=== PATIENT | male | born 1985 | race Caucasian/White ===

== ENCOUNTER 2018-04-17 13:13 | Emergency (ER) | payer SELFPAY ==
--- NOTE | 2018-04-17 13:31 | ER Document Report ---
ED Medical Screen (RME) - General Chief Complaint: Weakness Stated Complaint: ARM TINGLING/ SWEATING Time Seen by Provider: 04/17/18 13:18 Mode of Arrival: Ambulatory Information source: Patient TRAVEL OUTSIDE OF THE [place] IN LAST 30 DAYS: No - HPI Patient complains to provider of: Chills, tingling in left arm, nausea, generalized weakness Onset: Yesterday Onset/Duration: Gradual, Persistent Notes: 04/17/18 13:30 Patient is a 32-year-old otherwise healthy male presenting to the emergency room complaining of symptoms that started yesterday which include nausea with no appetite today, tingling sensation down the left arm, generalized weakness with a period of approximately 20 minutes yesterday evening where he felt as though his legs were stiff and he was shuffling on his feet, he also reports chills today, feeling flushed with generalized weakness - Related Data Allergies/Adverse Reactions: No Known Allergies Allergy (Verified 04/17/18 13:14) Past Medical History - Social History Chew tobacco use (# tins/day): No Frequency of alcohol use: None Drug Abuse: None Renal/ Medical History: Denies: Hx Peritoneal Dialysis - Immunizations Hx Diphtheria, Pertussis, Tetanus Vaccination: Yes Physical Exam - Vital signs Vitals: Temp Pulse Resp BP Pulse Ox 98.4 F 99 14 151/79 H 99 04/17/18 13:20 04/17/18 13:20 04/17/18 13:20 04/17/18 13:20 04/17/18 13:20 Course - Vital Signs Vital signs: Temp Pulse Resp BP Pulse Ox 98.4 F 99 14 151/79 H 99 04/17/18 13:20 04/17/18 13:20 04/17/18 13:20 04/17/18 13:20 04/17/18 13:20
[2018-04-17 14:00] LABS: APPEARANCE,URINE CLEAR; BILIRUBIN,URINE NEGATIVE (NEGATIVE); COLOR,URINE STRAW; GLUCOSE, URINE NEGATIVE (NEGATIVE); KETONES,URINE NEGATIVE (NEGATIVE); LEUKOCYTE ESTERASE,URINE NEGATIVE (NEGATIVE); NITRITE,URINE NEGATIVE (NEGATIVE); PROTEIN,URINE NEGATIVE (NEGATIVE); URINE SPECIFIC GRAVITY 1.009; UROBILINOGEN,URINE NEGATIVE mg/dL (<2.0)
[2018-04-17 14:05] LABS: ABSOLUTE BASOPHILS # (AUTO) 0.1 10^3/uL (0.0-0.2); ABSOLUTE EOSINOPHILS # (AUTO) 0.1 10^3/uL (0.0-0.6); ABSOLUTE LYMPHOCYTES (AUTO) 1.4 10^3/uL (0.5-4.7); ABSOLUTE MONOCYTES (AUTO) 0.6 10^3/uL (0.1-1.4); ABSOLUTE NEUT (AUTO) 13.1 10^3/uL (1.7-8.2); BASOPHILS % (AUTO) 0.6 % (0-2); EOSINOPHILS % (AUTO) 0.5 % (0-6); HEMATOCRIT 46.7 % (37.9-51.0); HEMOGLOBIN 15.5 g/dL (13.5-17.0); LYMPHOCYTES % (AUTO) 9.3 % (13-45); MEAN CORPUSCULAR HEMOGLOBIN 29.5 pg (27.0-33.4); MEAN CORPUSCULAR HGB CONC 33.1 g/dL (32.0-36.0); MEAN CORPUSCULAR VOLUME 89 fl (80-97); PLATELET COUNT 301 10^3/uL (150-450); RED BLOOD COUNT 5.23 10^6/uL (4.35-5.55); RED CELL DISTRIBUTION WIDTH 13.8 % (11.5-14.0); SEGMENTED NEUTROPHILS % (AUTO) 85.6 % (42-78); TOTAL CELLS COUNTED % (AUTO) 100 %; WHITE BLOOD COUNT 15.2 10^3/uL (4.0-10.5)
[2018-04-17 14:17] LABS: ALANINE AMINOTRANSFERASE 33 U/L (21-72); ALBUMIN 5.1 g/dL (3.5-5.0); ALKALINE PHOSPHATASE 56 U/L (38-126); ANION GAP 16 (5-19); ASPARTATE AMINO TRANSFERASE 23 U/L (17-59); BILIRUBIN,DIRECT 0.3 mg/dL (0.0-0.4); BILIRUBIN,TOTAL 0.5 mg/dL (0.2-1.3); BLOOD UREA NITROGEN 12 mg/dL (7-20); CALCIUM 10.2 mg/dL (8.4-10.2); CARBON DIOXIDE 26 mmol/L (22-30); CHLORIDE 104 mmol/L (98-107); CREATINE KINASE 125 U/L (55-170); GLUCOSE 124 mg/dL (75-110); LIPASE 71.3 U/L (23-300); POTASSIUM 4.8 mmol/L (3.6-5.0); SODIUM 146.4 mmol/L (137-145); TOTAL PROTEIN 7.8 g/dL (6.3-8.2)
[2018-04-17] MEDS ORDERED: ASPIRIN 81 MG TABLET, CHEWABLE PO ONE (15:36)
[2018-04-17] MEDS ORDERED: NORMAL SALINE 1000 ML 1,000 ML IV ONE (15:36)
[2018-04-17 16:01] LABS: URINE AMPHETAMINES SCREEN NEGATIVE; URINE BARBITURATES SCREEN NEGATIVE; URINE BENZODIAZEPINES SCREEN NEGATIVE; URINE COCAINE SCREEN NEGATIVE; URINE MARIJUANA (THC) SCREEN UNCONFIRMED POSITIVE; URINE METHADONE SCREEN NEGATIVE; URINE PHENCYCLIDINE SCREEN NEGATIVE
--- NOTE | 2018-04-17 16:04 | RADIOLOGY REPORT (SQ) ---
EXAM DESCRIPTION: CHEST 2 VIEWS COMPLETED DATE/TIME: 04/17/2018 3:49 pm REASON FOR STUDY: chest tightness COMPARISON: None. EXAM PARAMETERS: NUMBER OF VIEWS: two views TECHNIQUE: Digital Frontal and Lateral radiographic views of the chest acquired. RADIATION DOSE: NA LIMITATIONS: none FINDINGS: LUNGS AND PLEURA: No opacities, masses or pneumothorax. No pleural effusion. MEDIASTINUM AND HILAR STRUCTURES: No masses or contour abnormalities. HEART AND VASCULAR STRUCTURES: Heart normal size. No evidence for failure. BONES: No acute findings. HARDWARE: None in the chest. OTHER: No other significant finding. IMPRESSION: NO ACUTE RADIOGRAPHIC FINDING IN THE CHEST. TECHNICAL DOCUMENTATION: JOB ID: [id number] [employer]- All Rights Reserved Reading location - IP/workstation name: [email or web address]
--- NOTE | 2018-04-17 18:00 | ER Document Report ---
ED General - General Chief Complaint: Weakness Stated Complaint: ARM TINGLING/ SWEATING Time Seen by Provider: 04/17/18 13:18 Mode of Arrival: Ambulatory Information source: Patient Notes: Patient presents complaining of tingling in the left upper extremity with decreased appetite and generalized weakness that started yesterday. Patient states that yesterday he had some chills and his legs felt stiff. Patient states today whenever he woke up his legs felt heavy and he had a pins and needle sensation to his left upper arm. Patient reports that he received a concerning phone call about losing his job around 3:00 and then developed a tightness in his chest around 3:15. Patient denies any nausea vomiting or shortness of breath. TRAVEL OUTSIDE OF THE [place] IN LAST 30 DAYS: No - HPI Onset: Yesterday Onset/Duration: Gradual Quality of pain: Other - Tightness Pain Level: Denies Associated symptoms: Chest pain - Facet of chest tightness, Weakness. denies: Nonproductive cough, Productive cough, Fever, Nausea, Vomiting, Sweating Exacerbated by: Denies Relieved by: Denies Similar symptoms previously: No Recently seen / treated by doctor: No - Related Data Allergies/Adverse Reactions: No Known Allergies Allergy (Verified 04/17/18 13:14) Past Medical History - General Information source: Patient - Social History Smoking Status: Current Every Day Smoker Chew tobacco use (# tins/day): No Frequency of alcohol use: None Drug Abuse: None Occupation: Auto detailing Lives with: Family Family History: None Patient has suicidal ideation: No Patient has homicidal ideation: No - Medical History Medical History: Negative - Past Medical History Cardiac Medical History: Denies: Hx Coronary Artery Disease, Hx Hypercholesterolemia, Hx Hypertension Renal/ Medical History: Denies: Hx Peritoneal Dialysis Surgical Hx: Negative - Immunizations Hx Diphtheria, Pertussis, Tetanus Vaccination: Yes Review of Systems - Review of Systems Constitutional: Weakness. denies: Fever EENT: No symptoms reported Cardiovascular: Chest pain - Episode of chest tightness Respiratory: No symptoms reported. denies: Cough, Short of breath Gastrointestinal: No symptoms reported. denies: Abdominal pain, Diarrhea, Nausea, Vomiting Genitourinary: No symptoms reported Male Genitourinary: No symptoms reported Musculoskeletal: No symptoms reported Skin: No symptoms reported Hematologic/Lymphatic: No symptoms reported Neurological/Psychological: Tingling - Left upper extremity Physical Exam - Vital signs Vitals: Temp Pulse Resp BP Pulse Ox 98.4 F 99 14 151/79 H 99 04/17/18 13:20 04/17/18 13:20 04/17/18 13:20 04/17/18 13:20 04/17/18 13:20 - General General appearance: Appears well, Alert In distress: None - HEENT Head: Normocephalic, Atraumatic Eyes: Normal Conjunctiva: Normal Pupils: PERRL Ears: Normal External canal: Normal Sinus: Normal Nasal: Normal Mouth/Lips: Normal Mucous membranes: Normal Pharynx: Normal Neck: Normal, Supple. No: Lymphadenopathy - Respiratory Respiratory status: No respiratory distress Chest status: Nontender Breath sounds: Normal. No: Rales, Rhonchi, Stridor, Wheezing Chest palpation: Normal - Cardiovascular Rhythm: Regular Heart sounds: S1 appreciated, S2 appreciated Murmur: No - Abdominal Inspection: Normal Distension: No distension Bowel sounds: Normal Tenderness: Nontender - Back Back: Normal, Nontender. No: CVA tenderness - Extremities General upper extremity: Normal inspection, Normal strength General lower extremity: Normal inspection, Normal strength - Neurological Neuro grossly intact: Yes Cognition: Normal [place] Coma Scale Eye Opening: Spontaneous [place]iz[place] Coma Scale Verbal: Oriented [place]iz[place] Coma Scale Motor: Obeys Commands [place] Coma Scale Total: 15 - Psychological Associated symptoms: Normal affect, Normal mood - Skin Skin Temperature: Warm Skin Moisture: Dry Skin Color: Normal Course - Re-evaluation Re-evalutation: 04/17/18 17:59 Patient states that he is feeling much better at this time. Patient denies any chest pain or dyspnea symptoms. Patient states that he just got word that the business he works for is going under and he states that his chest tightness symptoms started shortly after receiving this phone call. Vital signs stable at this time. Patient advised of repeat troponin scheduled at 615. Patient is agreeable to wait for this test at this time. 04/17/18 19:11 Patient denies any complaints at this time, repeat troponin reviewed. The patient has atypical chest pain as the patient's chest pain is not suggestive of pulmonary embolus, cardiac ischemia, aortic dissection, or other serious etiology. Given the extremely low risk of these diagnoses for the test in evaluation for these possibilities does not appear to be indicated at this time. Patient has been instructed to return if the symptoms worsen or change in any way. - Vital Signs Vital signs: Temp Pulse Resp BP Pulse Ox 98.2 F 99 16 121/73 96 04/17/18 18:01 04/17/18 13:20 04/17/18 18:01 04/17/18 18:01 04/17/18 18:01 - Laboratory Result Diagrams: 04/17/18 13:30 04/17/18 13:30 Laboratory results interpreted by me: 04/17/18 04/17/18 13:30 13:30 WBC 15.2 H Seg Neutrophils % 85.6 H Lymphocytes % 9.3 L Absolute Neutrophils 13.1 H Sodium 146.4 H Glucose 124 H Albumin 5.1 H 04/17/18 19:11 Labs- Entire Visit 04/17/18 04/17/18 04/17/18 13:30 13:30 13:30 WBC 15.2 H RBC 5.23 Hgb 15.5 Hct 46.7 MCV 89 MCH 29.5 MCHC 33.1 RDW 13.8 Plt Count 301 Seg Neutrophils % 85.6 H Lymphocytes % 9.3 L Monocytes % 4.0 Eosinophils % 0.5 Basophils % 0.6 Absolute Neutrophils 13.1 H Absolute Lymphocytes 1.4 Absolute Monocytes 0.6 Absolute Eosinophils 0.1 Absolute Basophils 0.1 Sodium 146.4 H Potassium 4.8 Chloride 104 Carbon Dioxide 26 Anion Gap 16 BUN 12 Creatinine 0.69 Est GFR ( Amer) > 60 Est GFR (Non-Af Amer) > 60 Glucose 124 H Calcium 10.2 Total Bilirubin 0.5 Direct Bilirubin 0.3 Neonat Total Bilirubin Not Reportable Neonat Direct Bilirubin Not Reportable Neonat Indirect Bili Not Reportable AST 23 ALT 33 Alkaline Phosphatase 56 Creatine Kinase 125 Troponin I Total Protein 7.8 Albumin 5.1 H Lipase 71.3 Urine Color STRAW Urine Appearance CLEAR Urine pH 7.0 Ur Specific [place] 1.009 Urine Protein NEGATIVE Urine Glucose (UA) NEGATIVE Urine Ketones NEGATIVE Urine Blood NEGATIVE Urine Nitrite NEGATIVE Urine Bilirubin NEGATIVE Urine Urobilinogen NEGATIVE Ur Leukocyte Esterase NEGATIVE Urine WBC (Auto) 1 Urine RBC (Auto) 1 Squamous Epi Cells Auto <1 Urine Mucus (Auto) RARE Urine Ascorbic Acid NEGATIVE Urine Opiates Screen Urine Methadone Screen Ur Barbiturates Screen Ur Phencyclidine Scrn Ur Amphetamines Screen U Benzodiazepines Scrn Urine Cocaine Screen U Marijuana (THC) Screen 04/17/18 04/17/18 04/17/18 13:30 13:30 18:10 WBC RBC Hgb Hct MCV MCH MCHC RDW Plt Count Seg Neutrophils % Lymphocytes % Monocytes % Eosinophils % Basophils % Absolute Neutrophils Absolute Lymphocytes Absolute Monocytes Absolute Eosinophils Absolute Basophils Sodium Potassium Chloride Carbon Dioxide Anion Gap BUN Creatinine Est GFR ( Amer) Est GFR (Non-Af Amer) Glucose Calcium Total Bilirubin Direct Bilirubin Neonat Total Bilirubin Neonat Direct Bilirubin Neonat Indirect Bili AST ALT Alkaline Phosphatase Creatine Kinase Troponin I < 0.012 < 0.012 Total Protein Albumin Lipase Urine Color Urine Appearance Urine pH Ur Specific [place] Urine Protein Urine Glucose (UA) Urine Ketones Urine Blood Urine Nitrite Urine Bilirubin Urine Urobilinogen Ur Leukocyte Esterase Urine WBC (Auto) Urine RBC (Auto) Squamous Epi Cells Auto Urine Mucus (Auto) Urine Ascorbic Acid Urine Opiates Screen NEGATIVE Urine Methadone Screen NEGATIVE Ur Barbiturates Screen NEGATIVE Ur Phencyclidine Scrn NEGATIVE Ur Amphetamines Screen NEGATIVE U Benzodiazepines Scrn NEGATIVE Urine Cocaine Screen NEGATIVE U Marijuana (THC) Screen UNCONFIRMED POSITIVE - Diagnostic Test Radiology reviewed: Reports reviewed Discharge - Discharge Clinical Impression: Weakness, Stress at work, Paresthesia of arm Chest pain Qualifiers: Chest pain type: unspecified Qualified Code(s): R07.9 - Chest pain, unspecified Condition: Stable Disposition: HOME, SELF-CARE Instructions: Chest Pain of Unclear Cause ([facility]), Weakness ([facility]) Additional Instructions: Return immediately for any new or worsening symptoms Followup with your primary care provider, call tomorrow to make a followup appointment Stay well-hydrated Follow-up with a pot fisher for repeat examination, call tomorrow for an appointment Forms: Return to Work Referrals: ADELAIDE JAQUEZ MD [Primary Care Provider] - Follow up tomorrow BLADIMIR ESTRADA MD [ACTIVE STAFF] - Follow up tomorrow
[2018-04-17 19:15] VITALS: BP 126/75
--- NOTE | 2018-04-17 21:47 | EKG REPORT ---
SEVERITY:- ABNORMAL ECG - SINUS RHYTHM LEFT ATRIAL ABNORMALITY IRBBB : Confirmed by: Rani Post 17-Apr-2018 21:46:48
--- NOTE | 2018-04-17 21:47 | EKG REPORT ---
SEVERITY:- NORMAL ECG - SINUS RHYTHM : Confirmed by: Rani Post 17-Apr-2018 21:46:58
== END 2018-04-17 19:30 | disposition home or self-care (01) ==
LOC: ER 13:13
DX: R53.1 Weakness (principal); R20.2 Paresthesia of skin; R07.9 Chest pain, unspecified; F17.200 Nicotine dependence, unspecified, uncomplicated; Z56.3 Stressful work schedule
CPT/HCPCS: 93005; 99285; 96360; 36415; 82550; 83690; 85025; 80053; 81001; 84484; 80307; 71046; 93010; J7030

== ENCOUNTER 2020-04-01 16:51 | Observation (INO) | payer MEDICAID ==
[2020-04-01] MEDS ORDERED: ONDANSETRON HCL INJ/PF 4 MG/2 ML SDV IV ONE (18:25)
[2020-04-01] MEDS ORDERED: RINGERS SOLUTION,LACTATED 1,000 ML IV ONE (18:25)
--- NOTE | 2020-04-01 18:27 | ER Document Report ---
ED Medical Screen (RME) - General Chief Complaint: Abdominal Pain Stated Complaint: RIGHT FLANK PAIN,ABDOMINAL PAIN Time Seen by Provider: 04/01/20 18:20 Primary Care Provider: PEDRO WORLEY MD [Primary Care Provider] - Follow up as needed Mode of Arrival: Ambulatory Information source: Patient Notes: HPI; 34-year-old male presents to the emergency room complaining of abdominal cramping that started last night about 2 hours after eating pizza. Patient has noticed over the past few months every time he eats anything with red sauce he develops abdominal cramping. Complains of nausea but no vomiting. States he saw his primary care physician and was referred to the emergency room for further evaluation. PE: Alert and oriented x3. Lungs: Clear to auscultation without rales, rhonchi, wheezes. Heart: Regular rate rhythm without murmurs, rubs, gallops. Generalized tenderness on palpation to his abdomen. There is no guarding, no rebound, positive bowel sounds x4. Unable to do full abdominal exam in triage. I have greeted and performed a rapid initial assessment of this patient. A comprehensive ED assessment and evaluation of the patient, analysis of test results and completion of the medical decision making process will be conducted by additional ED providers. I have specifically instructed the patient or family members with the patient to immediately return to any nursing staff should anything change in the patient's condition or with their chief complaint. TRAVEL OUTSIDE OF THE [place] IN LAST 30 DAYS: No - Related Data Allergies/Adverse Reactions: No Known Allergies Allergy (Verified 04/01/20 18:20) Past Medical History - Social History Chew tobacco use (# tins/day): No Frequency of alcohol use: Occasional Drug Abuse: None - Past Medical History Cardiac Medical History: Denies: Hx Coronary Artery Disease, Hx Hypercholesterolemia, Hx Hypertension Renal/ Medical History: Denies: Hx Peritoneal Dialysis - Immunizations Hx Diphtheria, Pertussis, Tetanus Vaccination: Yes Physical Exam - Vital signs Vitals: Temp Pulse Resp BP Pulse Ox 99.0 F 103 H 20 162/95 H 97 04/01/20 16:59 04/01/20 16:59 04/01/20 16:59 04/01/20 16:59 04/01/20 16:59 Course - Vital Signs Vital signs: Temp Pulse Resp BP Pulse Ox 99.0 F 103 H 20 162/95 H 97 04/01/20 18:20 04/01/20 16:59 04/01/20 16:59 04/01/20 16:59 04/01/20 16:59 Doctor's Discharge - Discharge Referrals: PEDRO WORLEY MD [Primary Care Provider] - Follow up as needed
[2020-04-01 18:55] LABS: ABSOLUTE BASOPHILS # (AUTO) 0.1 10^3/uL (0.0-0.2); ABSOLUTE EOSINOPHILS # (AUTO) 0.1 10^3/uL (0.0-0.6); ABSOLUTE LYMPHOCYTES (AUTO) 2.5 10^3/uL (0.5-4.7); ABSOLUTE MONOCYTES (AUTO) 1.5 10^3/uL (0.1-1.4); ABSOLUTE NEUT (AUTO) 15.6 10^3/uL (1.7-8.2); BASOPHILS % (AUTO) 0.7 % (0-2); EOSINOPHILS % (AUTO) 0.6 % (0-6); HEMATOCRIT 45.4 % (37.9-51.0); HEMOGLOBIN 15.4 g/dL (13.5-17.0); LYMPHOCYTES % (AUTO) 12.7 % (13-45); MEAN CORPUSCULAR VOLUME 88 fl (80-97); MONOCYTES % (AUTO) 7.3 % (3-13); PLATELET COUNT 272 10^3/uL (150-450); RED BLOOD COUNT 5.14 10^6/uL (4.35-5.55); SEGMENTED NEUTROPHILS % (AUTO) 78.7 % (42-78); TOTAL CELLS COUNTED % (AUTO) 100 %; WHITE BLOOD COUNT 19.9 10^3/uL (4.0-10.5)
[2020-04-01 19:13] LABS: ALBUMIN 5.4 g/dL (3.5-5.0); ALKALINE PHOSPHATASE 74 U/L (38-126); ANION GAP 11 (5-19); ASPARTATE AMINO TRANSFERASE 22 U/L (17-59); BILIRUBIN,DIRECT 0.1 mg/dL (0.0-0.4); BILIRUBIN,TOTAL 0.8 mg/dL (0.2-1.3); BLOOD UREA NITROGEN 15 mg/dL (7-20); CALCIUM 10.3 mg/dL (8.4-10.2); CARBON DIOXIDE 23 mmol/L (22-30); CHLORIDE 105 mmol/L (98-107); GLUCOSE 96 mg/dL (75-110); POTASSIUM 3.9 mmol/L (3.6-5.0); TOTAL PROTEIN 8.5 g/dL (6.3-8.2)
--- NOTE | 2020-04-01 19:29 | RADIOLOGY REPORT (SQ) ---
EXAM DESCRIPTION: U/S ABDOMEN COMPLETE W/DOPPLER IMAGES COMPLETED DATE/TIME: 04/01/2020 7:20 pm REASON FOR STUDY: abdominal pain COMPARISON: None. TECHNIQUE: Dynamic and static grayscale images acquired of the abdomen and recorded on PACS. Additio nal selected color Doppler and spectral images recorded. Note: Study does not meet criteria for complete doppler/duplex scan LIMITATIONS: None. FINDINGS: PANCREAS: No masses. Visualized pancreatic duct normal caliber. LIVER: Fatty liver with focal fatty sparing. No focal masses. 16.8 cm. LIVER VASCULATURE: Normal directional flow of the main portal vein and hepatic veins. GALLBLADDER: No stones. Normal wall thickness. No pericholecystic fluid. ULTRASOUND-DETECTED ARROYO'S SIGN: Negative. INTRAHEPATIC DUCTS AND COMMON DUCT: CBD and intrahepatic ducts normal caliber. No filling defects. INFERIOR VENA CAVA: Normal flow. AORTA: No aneurysm. RIGHT KIDNEY: Normal size. Normal echogenicity. No solid or suspicious masses. No hydronephros is. No calcifications. LEFT KIDNEY: Normal size. Normal echogenicity. No solid or suspicious masses. No hydronephrosi s. No calcifications. SPLEEN: Normal size. No solid masses. PERITONEAL AND PLEURAL SPACES: No ascites or effusions. OTHER: No other significant finding. IMPRESSION: Fatty liver with focal fatty sparing. Otherwise negative. TECHNICAL DOCUMENTATION: JOB ID: [id number] 2010 [employer]- All Rights Reserved Reading location - IP/workstation name: [email or web address]
[2020-04-01 19:50] LABS: APPEARANCE,URINE SLIGHTLY-CLOUDY; BILIRUBIN,URINE NEGATIVE (NEGATIVE); COLOR,URINE YELLOW; GLUCOSE, URINE NEGATIVE (NEGATIVE); KETONES,URINE 80 mg/dL (NEGATIVE); LEUKOCYTE ESTERASE,URINE TRACE (NEGATIVE); NITRITE,URINE NEGATIVE (NEGATIVE); PROTEIN,URINE 30 mg/dL (NEGATIVE); URINE SPECIFIC GRAVITY 1.017; UROBILINOGEN,URINE NEGATIVE mg/dL (<2.0)
[2020-04-01] MEDS ORDERED: ONDANSETRON 4 MG TAB.RAPDIS PO ONE (19:53)
--- NOTE | 2020-04-02 00:06 | ER Document Report ---
ED General - General Chief Complaint: Abdominal Pain Stated Complaint: RIGHT FLANK PAIN,ABDOMINAL PAIN Time Seen by Provider: 04/01/20 18:20 Primary Care Provider: PEDRO WORLEY MD [COMMUNITY BASED STAFF] - Follow up as needed Mode of Arrival: Ambulatory TRAVEL OUTSIDE OF THE [place] IN LAST 30 DAYS: No - HPI Notes: Patient is a 34-year-old male who presents to the emergency department for evaluation of abdominal pain. He normally has 2 bowel movements a day. He has not had a bowel movement in nearly 60 hours. He states his bowel movements pr eceding that were not exactly normal. He has not been eating a normal diet. He admits to diminished appetite today. He states he had a chicken and cheese burrito and a piece of cheese pizza yesterday. He has cramping abdominal pain is been constant. Is primarily in the lower abdomen, directed more to the right. He has had no fevers or chills. He has had diminished appetite. He has had some mild nausea. He states that normally he would belch or pass gas to feel better, he states he really has not had much luck with that until being in the room. He states that he has belched and passed gas, and now feels slightly better. He saw his primary care provider who recommended imaging to rule out appendicitis. - Related Data Allergies/Adverse Reactions: No Known Allergies Allergy (Verified 04/01/20 18:20) Home Medications: None Past Medical History - General Information source: Patient - Social History Smoking Status: Current Every Day Smoker Chew tobacco use (# tins/day): No Frequency of alcohol use: Occasional Drug Abuse: None, Marijuana Family History: None Patient has homicidal ideation: No - Past Medical History Cardiac Medical History: Denies: Hx Coronary Artery Disease, Hx Hypercholesterolemia, Hx Hypertension Renal/ Medical History: Denies: Hx Peritoneal Dialysis - Immunizations Hx Diphtheria, Pertussis, Tetanus Vaccination: Yes Review of Systems - Review of Systems Constitutional: See HPI Gastrointestinal: See HPI -: Yes All other systems reviewed and negative Physical Exam - Vital signs Vitals: Temp Pulse Resp BP Pulse Ox 99.0 F 103 H 20 162/95 H 97 04/01/20 16:59 04/01/20 16:59 04/01/20 16:59 04/01/20 16:59 04/01/20 16:59 - Notes Notes: This is an anxious appearing 34-year-old male, who appears his stated age, no acute distress. Vital signs reviewed, please refer to chart. Head is normocephalic, atraumatic. Pupils equal round, reactive to light. Neck is supple without meningismus. Heart is regular rate and rhythm. Lungs are clear to auscultation bilaterally. Abdomen is soft, moderately tender in the suprapubic and right lower quadrant without rebound or guarding, normoactive bowel sounds throughout. Positive Rovsing's. Extremities without cyanosis, clubbing. Posterior calves are nontender. Peripheral pulses are equal. Skin is warm and dry. Patient is awake, alert, neurological exam is nonfocal. Course - Re-evaluation Re-evalutation: 04/02/20 00:06 Patient presents to the emergency department for evaluation. He was initially seen through triage. He had laboratory investigations which revealed significant leukocytosis. Right upper quadrant ultrasound was performed which revealed a fatty liver no other acute findings. CT scan of the abdomen pelvis with IV and oral contrast is ordered. IV is placed while I was in the room. Patient states he is feeling somewhat improved. Awaiting imaging, he is stable. We will continue to monitor. 04/02/20 01:19 CT scan findings are consistent with acute appendicitis. I went back into reevaluate the patient. He states his pain is tolerable at this time. Findings on CT communicated to the patient. I spoke with Dr. Flores, he will come and evaluate the patient as well. 04/02/20 01:52 Dr. Flores has come, will admit the patient. - Vital Signs Vital signs: Temp Pulse Resp BP Pulse Ox 99.0 F 103 H 20 162/95 H 97 04/01/20 18:20 04/01/20 16:59 04/01/20 16:59 04/01/20 16:59 04/01/20 16:59 - Laboratory Result Diagrams: 04/01/20 18:46 04/01/20 18:46 Laboratory results interpreted by me: 04/01/20 04/01/20 04/01/20 18:46 18:46 19:24 WBC 19.9 H Lymph % (Auto) 12.7 L Absolute Neuts (auto) 15.6 H Absolute Monos (auto) 1.5 H Seg Neutrophils % 78.7 H Calcium 10.3 H Total Protein 8.5 H Albumin 5.4 H Urine Protein 30 H Urine Ketones 80 H Urine Blood SMALL H Ur Leukocyte Esterase TRACE H - Diagnostic Test Radiology reviewed: Reports reviewed Radiology results interpreted by me: 04/02/20 01:20 Abdomen Ultrasound 04/01/20 18:24 IMPRESSION: Fatty liver with focal fatty sparing. Otherwise negative. Abdomen/Pelvis CT 04/02/20 00:00 IMPRESSION: 1. Findings consistent with acute, uncomplicated appendicitis. 2. Mucosal edema and thickening in the left colon beginning in the descending colon extending to the rectal vault suggesting low-grade colitis. 3. No evidence of perforation or abscess. Discharge - Discharge Clinical Impression: Acute appendicitis Qualifiers: Acute appendicitis type: with localized peritonitis Appendicitis gangrene presence: without gangrene Appendicitis perforation presence: without perforation Appendicitis abscess presence: without abscess Qualified Code(s): K35.30 - Acute appendicitis with localized peritonitis, without perforation or gangrene Condition: Stable Disposition: ADMITTED OBSERVATION Admitting Provider: Surgicalist - Dr. Flores Unit Admitted: Surgical Floor Referrals: PEDRO WORLEY MD [COMMUNITY BASED STAFF] - Follow up as needed
--- NOTE | 2020-04-02 00:58 | RADIOLOGY REPORT (SQ) ---
EXAM DESCRIPTION: Contrast-enhanced CT scan of the abdomen and pelvis CLINICAL HISTORY: 34 years Male; abdominal pain TECHNIQUE: CT of the abdomen and pelvis with intravenous contrast.. Oral contrast was used. Delayed imaging of the abdomen and pelvis was also performed. All CT scans at this facility use dose modulation, iterative reconstruction, and/or weight based dosing when appropriate to reduce radiation dose to as low as reasonably achievable. This exam was performed according to our department optimization program which includes automated exposure control, adjustment of the mA and/or kv according to patient size and/or use of iterative reconstruction technique. COMPARISON: None. FINDINGS: Lower chest:The lung bases are clear. The visualized portion of heart and great vessels are normal. Abdomen: Liver and biliary tree:The liver and gallbladder appear normal. Portal vein and hepatic veins are patent. No biliary dilatation. Pancreas: Normal Spleen:Within normal limits Kidneys: Kidneys are normal in size, shape and position. No stones. No mass or hydronephrosis. Symmetric renal enhancement. On delayed images there is symmetric contrast excretion from the kidneys and the ureters are seen throughout their length and appear normal. Adrenal glands:Within normal limits Vascular structures:Within normal limits Retroperitoneum: No mass or lymphadenopathy Abdominal wall: normal GI: Oral contrast is noted in the distal small bowel and the colon. No bowel obstruction. There is subtle scattered diverticula in the left colon. Beginning at the mid left colon and extending down through the rectal vault there is mucosal thickening suggesting mild colitis. Appendix: The appendix is abnormal and there is bowel wall thickening surrounding inflammation and edema. This is consistent with acute appendicitis. There is edema involving the tip of the cecum. The appendix measures 11 mm in diameter and there is periappendiceal edema. No evidence of perforation or abscess. General: No free air. No free fluid Pelvis: Lymph nodes: No mass or lymphadenopathy Bladder: Unremarkable. Pelvis: No pelvic mass or adenopathy. Bones: No acute bone findings. IMPRESSION: 1. Findings consistent with acute, uncomplicated appendicitis. 2. Mucosal edema and thickening in the left colon beginning in the descending colon extending to the rectal vault suggesting low-grade colitis. 3. No evidence of perforation or abscess.
--- NOTE | 2020-04-02 01:50 | PDOC H&P ---
History of Present Illness Admission Date/PCP: MELISSA DUDLEY PA-C History of Present Illness: MARY ESQUIVEL is a 34 year old male with a 2-day history of abdominal pain. His pain began in the periumbilical region, and has moved to his right lower quadrant. It intensified significantly over the last 2 days. He rates his pain is 5 out of 10. It is sharp and stabbing. It is now constant. Patient has had some nausea, but no significant vomiting. Palpation and movement make it worse. Nothing makes it better. It does not radiate. Patient denies chest pain, shortness of breath, dizziness, orthostasis, fatigue, malaise, headache, rash, itching, melena, ageusia, hematemesis. Past Medical History Cardiac Medical History: Denies: Coronary Artery Disease, Hyperlipidema, Hypertension Psychiatric Medical History: Reports: General Anxiety Disorder Past Surgical History Past Surgical History: Reports: None Social History Smoking Status: Current Every Day Smoker Electronic Cigarette use?: No Frequency of Alcohol Use: Occasional Hx Recreational Drug Use: Yes Drugs: Marijuana Hx Prescription Drug Abuse: No Family History Family History: None Parental Family History Reviewed: Yes Children Family History Reviewed: Yes Sibling(s) Family History Reviewed.: Yes Medication/Allergy Home Medications: No Home Medications 04/17/18 Allergies/Adverse Reactions: No Known Allergies Allergy (Verified 04/01/20 18:20) Review of Systems Constitutional: PRESENT: anorexia, chills. ABSENT: fatigue, night sweats, weakness Eyes: ABSENT: visual disturbances Ears: ABSENT: hearing changes Nose, Mouth, and Throat: ABSENT: sore throat Cardiovascular: ABSENT: chest pain, dyspnea on exertion Respiratory: ABSENT: cough, dyspnea Gastrointestinal: PRESENT: abdominal pain, nausea Genitourinary: ABSENT: dysuria Musculoskeletal: ABSENT: back pain Integumentary: ABSENT: pruritus, rash Neurological: ABSENT: confusion, convulsions, dizziness Psychiatric: PRESENT: anxiety. ABSENT: depression Endocrine: ABSENT: cold intolerance, heat intolerance Hematologic/Lymphatic: ABSENT: easy bleeding, easy bruising Physical Exam Vital Signs: Temp Pulse Resp BP Pulse Ox 99.0 F 103 H 20 162/95 H 97 04/01/20 18:20 04/01/20 16:59 04/01/20 16:59 04/01/20 16:59 04/01/20 16:59 Intake & Output 03/31/20 04/01/20 04/02/20 06:59 06:59 06:59 Weight 99.2 kg General appearance: PRESENT: no acute distress, cooperative, obese Head exam: PRESENT: atraumatic, normocephalic Eye exam: PRESENT: EOMI, PERRLA. ABSENT: scleral icterus Mouth exam: PRESENT: moist, neck supple Neck exam: ABSENT: meningismus, tenderness, thyromegaly, tracheal deviation Respiratory exam: PRESENT: unlabored. ABSENT: tachypnea, wheezes Cardiovascular exam: PRESENT: RRR. ABSENT: tachycardia Vascular exam: PRESENT: normal capillary refill. ABSENT: pallor GI/Abdominal exam: PRESENT: guarding - Right lower quadrant, soft, tenderness - Right lower quadrant. ABSENT: distended Rectal exam: PRESENT: deferred Extremities exam: ABSENT: clubbing Musculoskeletal exam: ABSENT: deformity Neurological exam: PRESENT: alert, awake, oriented to person, oriented to place, oriented to time, oriented to situation, CN II-XII grossly intact. ABSENT: motor sensory deficit Psychiatric exam: PRESENT: anxious. ABSENT: agitated, depressed Focused psych exam: ABSENT: delusional Skin exam: ABSENT: cyanosis, erythema, jaundice Results Laboratory Results: 04/01/20 18:46 04/01/20 18:46 04/01/20 04/01/20 04/01/20 18:46 18:46 19:24 WBC 19.9 H RBC 5.14 Hgb 15.4 Hct 45.4 MCV 88 MCH 30.0 MCHC 34.0 RDW 14.0 Plt Count 272 Seg Neutrophils % 78.7 H Sodium 139.1 Potassium 3.9 Chloride 105 Carbon Dioxide 23 Anion Gap 11 BUN 15 Creatinine 0.72 Est GFR ( Amer) > 60 Glucose 96 Calcium 10.3 H Total Bilirubin 0.8 AST 22 Alkaline Phosphatase 74 Total Protein 8.5 H Albumin 5.4 H Lipase 39.5 Urine Color YELLOW Urine Appearance SLIGHTLY-CLOUDY Urine pH 6.0 Ur Specific [place] 1.017 Urine Protein 30 H Urine Glucose (UA) NEGATIVE Urine Ketones 80 H Urine Blood SMALL H Urine Nitrite NEGATIVE Ur Leukocyte Esterase TRACE H Urine WBC (Auto) 8 Urine RBC (Auto) 6 Impressions: Abdomen Ultrasound 04/01/20 18:24 IMPRESSION: Fatty liver with focal fatty sparing. Otherwise negative. Abdomen/Pelvis CT 04/02/20 00:00 IMPRESSION: 1. Findings consistent with acute, uncomplicated appendicitis. 2. Mucosal edema and thickening in the left colon beginning in the descending colon extending to the rectal vault suggesting low-grade colitis. 3. No evidence of perforation or abscess. Assessment & Plan - Diagnosis (1) Acute appendicitis Qualifiers: Acute appendicitis type: with localized peritonitis Appendicitis gangrene presence: without gangrene Appendicitis perforation presence: without perforation Appendicitis abscess presence: without abscess Qualified Code(s): K35.30 - Acute appendicitis with localized peritonitis, without perforation or gangrene Is this a current diagnosis for this admission?: Yes - Plan Summary Plan Summary: This is a 34-year-old male with right lower quadrant pain. He has a leukocytosis, and a CT scan consistent with acute appendicitis. I have reviewed treatment options with him. The patient has chosen surgical intervention for definitive treatment of his acute appendicitis. Risks/benefits discussed, informed consent obtained, and all questions answered.
[2020-04-02] MEDS ORDERED: DEXAMETHASONE SOD PHOSPHATE INJ 4 MG/1 ML VIAL ONE (03:10)
[2020-04-02] MEDS ORDERED: ONDANSETRON HCL INJ/PF 4 MG/2 ML SDV ONE (03:10)
[2020-04-02] MEDS ORDERED: MIDAZOLAM 2 MG/2 ML INJ ONE (03:10)
[2020-04-02] MEDS ORDERED: PROPOFOL INJ 200 MG/20 ML VIAL IV ONE (03:10)
[2020-04-02] MEDS ORDERED: FENTANYL CITRATE INJ/PF 100 MCG/2 ML AMPUL ONE (03:10)
[2020-04-02] MEDS ORDERED: BUPIVACAINE HCL 0.25 % INJ/PF (2.5 MG/1 ML) 30 ML VIAL ONE (03:41)
[2020-04-02] MEDS ORDERED: CEFAZOLIN INJ 1 GM VIAL ONE (05:03)
[2020-04-02] MEDS ORDERED: METRONIDAZOLE 500 MG/NS RTU 500 MG/100 ML RTUPB IV ONE (05:03)
[2020-04-02] MEDS ORDERED: MEPERIDINE HCL/PF INJ 25 MG/1 ML DISP.SYRIN IV PRN (05:27)
[2020-04-02] MEDS ORDERED: DIPHENHYDRAMINE HCL 50 MG/ML VIAL IV PRN (05:27)
[2020-04-02] MEDS ORDERED: MORPHINE SULFATE 10 MG/ML INJ IV PRN (05:27)
[2020-04-02] MEDS ORDERED: PROMETHAZINE HCL INJ 25 MG/1 ML VIAL IV PRN (05:27)
[2020-04-02] MEDS ORDERED: FENTANYL CITRATE INJ/PF 100 MCG/2 ML AMPUL IV PRN ×3 (05:27)
[2020-04-02] MEDS ORDERED: ONDANSETRON HCL INJ/PF 4 MG/2 ML SDV IV PRN (06:00)
[2020-04-02] MEDS ORDERED: HYDROCODONE/ACETAMINOPHEN 10-325 MG TABLET PO PRN (06:02)
--- NOTE | 2020-04-02 06:08 | Operative Report ---
Nonrecallable Operative Report DATE OF SURGERY: 04/02/20 PREOPERATIVE DIAGNOSIS: Acute appendicitis POSTOPERATIVE DIAGNOSIS: Acute nonperforated appendicitis OPERATION: Laparoscopic appendectomy SURGEON: FOUZIA STONE ANESTHESIA: GA TISSUE REMOVED OR ALTERED: Appendix COMPLICATIONS: None apparent ESTIMATED BLOOD LOSS: Minimal PROCEDURE: Drains/implants: None. Procedure in detail: After informed consent was obtained, the patient was brought to the operating room and laid in the supine position. The area of the abdomen was prepped and draped in a normal sterile fashion. A supraumbilical incision was created with a 15 blade scalpel. Dissection was carried through the subcutaneous tissues using sharp and blunt dissection. The cicatrix was identified, grasped with a Lucien clamp, and retracted upwards. The linea alba fascia was incised sharply, the abdomen was entered sharply. The balloon trocar was inserted, and pneumoperitoneum was achieved. A suprapubic 5 mm trocar was placed under direct laparoscopic visualization. Another left lower quadrant trocar was placed in similar fashion. Atraumatic graspers were placed through the 5 mm ports. The appendix was identified. It was injected and inflamed, but did not appear perforated. It was retracted anteriorly. The mesoappendix was taken down using the harmonic scalpel. 2 PDS Endoloops were secured around the base of the appendix. The appendix was then amputated using the harmonic scalpel. It was placed into an Endo Catch bag and pulled out through the supraumbilical port. The camera was then reinserted. The right lower quadrant was inspected. It was found to be hemostatic. After this was confirmed, the 5 mm trochars were removed under direct laparoscopic visualization. The supraumbilical trocar was removed, and pneumoperitoneum was relieved. The supraumbilical fascia was closed using 0 Vicryl suture in [id number] fa shion. The overlying skin was closed using 4-0 Vicryl Rapide suture in subcuticular fashion. Dressings were placed, and the procedure was concluded. All sponge, instrument, and needle counts were correct x2. Condition: Stable.
[2020-04-02] MEDS ORDERED: KETOROLAC TROMETHAMINE INJ/PF 30 MG/1 ML SDV ONE (06:54)
[2020-04-02] MEDS ORDERED: DOCUSATE SODIUM 100 MG CAPSULE PO SCH (10:00)
[2020-04-02] MEDS ORDERED: NICOTINE 21 MG/24 HR PATCH.TD24 TD SCH (10:00)
[2020-04-02 10:41] VITALS: BP 120/74
--- NOTE | 2020-04-02 11:14 | PDOC DISCHARGE SUMMARY ---
General - Admit/Disc Date/PCP Admission Date/Primary Care Provider: 04/02/20 02:04 MELISSA DUDLEY PA-C Discharge Date: 04/02/20 - Discharge Diagnosis Final Diagnosis: acute appendicitis - Assessment Summary: Discharge Summary (SDC) - Discharge Final Diagnosis: acute appendicits Date of Surgery: 04/02/20 Discharge Date: 04/02/20 Condition: Good Treatment or Instructions: no lifting of more than 10 lbs for 2 wks. Prescriptions: Hydrocodone/Acetaminophen [[place] 10-325 mg Tablet] 1 tab PO Q6HP PRN #20 tablet PRN Reason: Referrals: ESTELA MAGDALENO MD [Primary Care Provider] - Follow up as needed Discharge Activity: Activity As Tolerated, No Lifting Over 10 Pounds Report the Following to Your Physician Immediately: Shortness of Breath, Vomiting, Increase in Pain, Fever over 101 Degrees - needs f/u in surgery clinic in - dys - Additional Information Resuscitation Status: Full Code Discharge Diet: Regular Referrals: PEDRO WORLEY MD [COMMUNITY BASED STAFF] - Follow up as needed FOUZIA STONE MD [ACTIVE STAFF] - Home Medications: No Home Medications 04/17/18 History of Present Illiness History of Present Illness: MARY ESQUIVEL is a 34 year old male Physical Exam Vital Signs: Temp Pulse Resp BP Pulse Ox 97.5 F 79 16 120/74 99 04/02/20 10:40 04/02/20 10:40 04/02/20 10:40 04/02/20 10:40 04/02/20 10:40 Intake & Output 04/01/20 04/02/20 04/03/20 06:59 06:59 06:59 Intake Total 1000 1000 Output Total 5 Balance 995 1000 Weight 100.7 kg Results Laboratory Results: WBC 19.9 10^3/uL (4.0-10.5) H 04/01/20 18:46 RBC 5.14 10^6/uL (4.35-5.55) 04/01/20 18:46 Hgb 15.4 g/dL (13.5-17.0) 04/01/20 18:46 Hct 45.4 % (37.9-51.0) 04/01/20 18:46 MCV 88 fl (80-97) 04/01/20 18:46 MCH 30.0 pg (27.0-33.4) 04/01/20 18:46 MCHC 34.0 g/dL (32.0-36.0) 04/01/20 18:46 RDW 14.0 % (11.5-14.0) 04/01/20 18:46 Plt Count 272 10^3/uL (150-450) 04/01/20 18:46 Lymph % (Auto) 12.7 % (13-45) L 04/01/20 18:46 [place] % (Auto) 7.3 % (3-13) 04/01/20 18:46 Eos % (Auto) 0.6 % (0-6) 04/01/20 18:46 Baso % (Auto) 0.7 % (0-2) 04/01/20 18:46 Absolute Neuts (auto) 15.6 10^3/uL (1.7-8.2) H 04/01/20 18:46 Absolute Lymphs (auto) 2.5 10^3/uL (0.5-4.7) 04/01/20 18:46 Absolute Monos (auto) 1.5 10^3/uL (0.1-1.4) H 04/01/20 18:46 Absolute Eos (auto) 0.1 10^3/uL (0.0-0.6) 04/01/20 18:46 Absolute Basos (auto) 0.1 10^3/uL (0.0-0.2) 04/01/20 18:46 Seg Neutrophils % 78.7 % (42-78) H 04/01/20 18:46 Sodium 139.1 mmol/L (137-145) 04/01/20 18:46 Potassium 3.9 mmol/L (3.6-5.0) 04/01/20 18:46 Chloride 105 mmol/L (98-107) 04/01/20 18:46 Carbon Dioxide 23 mmol/L (22-30) 04/01/20 18:46 Anion Gap 11 (5-19) 04/01/20 18:46 BUN 15 mg/dL (7-20) 04/01/20 18:46 Creatinine 0.72 mg/dL (0.52-1.25) 04/01/20 18:46 Est GFR ( Amer) > 60 (>60) 04/01/20 18:46 Est GFR (MDRD) Non-Af > 60 (>60) 04/01/20 18:46 Glucose 96 mg/dL (75-110) 04/01/20 18:46 Calcium 10.3 mg/dL (8.4-10.2) H 04/01/20 18:46 Total Bilirubin 0.8 mg/dL (0.2-1.3) 04/01/20 18:46 Direct Bilirubin 0.1 mg/dL (0.0-0.4) 04/01/20 18:46 Neonat Total Bilirubin Not Reportable 04/01/20 18:46 Neonat Direct Bilirubin Not Reportable 04/01/20 18:46 Neonat Indirect Bili Not Reportable 04/01/20 18:46 AST 22 U/L (17-59) 04/01/20 18:46 ALT 28 U/L (<50) 04/01/20 18:46 Alkaline Phosphatase 74 U/L (38-126) 04/01/20 18:46 Total Protein 8.5 g/dL (6.3-8.2) H 04/01/20 18:46 Albumin 5.4 g/dL (3.5-5.0) H 04/01/20 18:46 Lipase 39.5 U/L (23-300) 04/01/20 18:46 Urine Color YELLOW 04/01/20 19:24 Urine Appearance SLIGHTLY-CLOUDY 04/01/20 19:24 Urine pH 6.0 (5.0-9.0) 04/01/20 19:24 Ur Specific [place] 1.017 04/01/20 19:24 Urine Protein 30 mg/dL (NEGATIVE) H 04/01/20 19:24 Urine Glucose (UA) NEGATIVE mg/dL (NEGATIVE) 04/01/20 19:24 Urine Ketones 80 mg/dL (NEGATIVE) H 04/01/20 19:24 Urine Blood SMALL (NEGATIVE) H 04/01/20 19:24 Urine Nitrite NEGATIVE (NEGATIVE) 04/01/20 19:24 Urine Bilirubin NEGATIVE (NEGATIVE) 04/01/20 19:24 Urine Urobilinogen NEGATIVE mg/dL (<2.0) 04/01/20 19:24 Ur Leukocyte Esterase TRACE (NEGATIVE) H 04/01/20 19:24 Urine WBC (Auto) 8 /HPF 04/01/20 19:24 Urine RBC (Auto) 6 /HPF 04/01/20 19:24 Squamous Epi Cells Auto 1 /HPF 04/01/20 19:24 Urine Mucus (Auto) MANY /LPF 04/01/20 19:24 Urine Ascorbic Acid NEGATIVE (NEGATIVE) 04/01/20 19:24 SARS-CoV-2 (PCR) NEGATIVE (NEGATIVE) 04/02/20 01:55 Impressions: Abdomen Ultrasound 04/01/20 18:24 IMPRESSION: Fatty liver with focal fatty sparing. Otherwise negative. Abdomen/Pelvis CT 04/02/20 00:00 IMPRESSION: 1. Findings consistent with acute, uncomplicated appendicitis. 2. Mucosal edema and thickening in the left colon beginning in the descending colon extending to the rectal vault suggesting low-grade colitis. 3. No evidence of perforation or abscess.
[2020-04-02] MEDS ORDERED: KETOROLAC TROMETHAMINE INJ/PF 30 MG/1 ML SDV IV SCH (14:00)
== END 2020-04-02 13:03 | disposition home or self-care (01) ==
LOC: ER 16:51 → EH 04-02 02:04 → 3W 04-02 06:42
PROVIDERS: ATTEND Surgery
DX: K35.80 Unspecified acute appendicitis (principal); Z03.818 Encounter for observation for suspected exposure to other biological agents ruled out; F17.200 Nicotine dependence, unspecified, uncomplicated; E66.9 Obesity, unspecified; K76.0 Fatty (change of) liver, not elsewhere classified
CPT/HCPCS: 99285; 96360; 96361; 36415; 83690; 85025; 87635; 80053; 81001; 88304 ×2; 76700; 93976; 74177; 44970; J2250; J0690; J1100; S0119; J3010; J3490 ×2; J2405; J7120; J2704; C9803; 840; 99140; G0378